=== PATIENT | female | born 1975 | race Caucasian/White ===

== ENCOUNTER 2020-02-29 17:50 | Emergency (ER) | payer OTHER ==
[~2020-02-29] VITALS: Ht 165.1 cm; Wt 142.4 kg
[~2020-02-29 17:50] MED LIST: BENADRYL; NKA
[2020-02-29 18:08] VITALS: BP 122/72
[2020-02-29] MEDS ORDERED: KETOROLAC 30 MG/ML VIAL IM ONE (18:35)
--- NOTE | 2020-02-29 18:40 | NUR ---
PT C/O RLQ ABDOMINAL PAIN RADIATING TO RUQ ABDOMEN AND RIGHT LOWER BACK AND NAUSEA FOR 2 HOURS. DENEIS VOMITING, DIARRHEA, FEVER, COUGH, OR SICK CONTACT. DENIES URGENCY, FREQUENCY, BURNING SENSATION OF URINATION. NO CVAT RANDI.
[2020-02-29 19:10] LABS: BASOPHILS # (AUTO) 0.1 K/uL (0.00-0.22); BASOPHILS % (AUTO) 0.6 % (0.0-2.0); EOSINOPHILS % (AUTO) 0.4 % (0.0-4.0); HEMATOCRIT 40.7 % (36-48); HEMOGLOBIN 13.7 g/dL (12.0-16.0); LYMPHOCYTES # (AUTO) 2.3 K/uL (2.5-16.5); LYMPHOCYTES % (AUTO) 22.5 % (20.5-51.1); MEAN CORPUSCULAR HEMOGLOBIN 32 pg (27-31); MEAN CORPUSCULAR HGB CONC 34 g/dL (33-37); MEAN CORPUSCULAR VOLUME 95.4 fL (80-94); MONOCYTES # (AUTO) 0.5 K/uL (0.8-1.0); MONOCYTES % (AUTO) 4.7 % (1.7-9.3); NEUTROPHILS # (AUTO) 7.2 K/uL (1.8-7.7); NEUTROPHILS % (AUTO) 71.8 % (42.2-75.2); PLATELET COUNT (AUTO) 303 K/uL (140-450); RED BLOOD CELL COUNT(AUTO) 4.27 MIL/uL (4.20-5.40); RED CELL DISTRIBUTION WIDTH 15.2 % (11.6-13.7)
[2020-02-29 19:11] LABS: APPEARANCE,URINE CLEAR (CLEAR); BILIRUBIN,URINE NEGATIVE (NEGATIVE); BLOOD, URINE NEGATIVE (NEGATIVE); COLOR,URINE YELLOW (YELLOW); LEUKOCYTE ESTERASE ,URINE NEGATIVE (NEGATIVE); NITRITE, URINE NEGATIVE (NEGATIVE); UGLUCOSE NEGATIVE (NEGATIVE)
[2020-02-29 19:24] LABS: ALBUMIN 3.7 g/dL (3.4-5.0); ANION GAP 14.2 (8-16); CARBON DIOXIDE 26.3 mmol/L (21-32); CREATININE 0.9 mg/dL (0.6-1.3); POTASSIUM 3.5 mmol/L (3.5-5.1); TOTAL BILIRUBIN 0.9 mg/dL (0.0-1.0)
[2020-02-29 21:14] VITALS: BP 122/72
--- NOTE | 2020-02-29 21:15 | NUR ---
Patient discharged with v/s stable. Written and verbal after care instructions given and explained. Patient alert, oriented and verbalized understanding of instructions. Ambulatory with steady gait. All questions addressed prior to discharge. ID band removed. Patient advised to follow up with PMD. Rx of FKAGYL, NAPROSYN AND FLAGYL given. Patient educated on indication of medication including possible reaction and side effects. Opportunity to ask questions provided and answered.
== END 2020-02-29 21:14 | disposition home or self-care (01) ==
LOC: MED 17:50
DX: R10.9 Unspecified abdominal pain (principal); Z79.899 Other long term (current) drug therapy; Z90.49 Acquired absence of other specified parts of digestive tract
CPT/HCPCS: 36415; 74176; 80053; 81003; 81025; 83690; 85025; 96372; 99284; J1885

== ENCOUNTER 2020-04-20 16:30 | Emergency (ER) | payer OTHER ==
[~2020-04-20] VITALS: Ht 157.5 cm; Wt 137.0 kg
[2020-04-20 16:36] VITALS: BP 136/92
--- NOTE | 2020-04-20 16:40 | NUR ---
11/08 R FLANK PAIN X1DAY AND INTERMITTENT MID ABDOMINAL PAIN X2 MONTHS. PT WAS DX WITH DIVERTICULOSIS IN 02/18, ABX PRESCRIBED AND PAIN NEVER SUBSIDED. DENIES DYSURIA. DENIES COVID SYMPTOMS. MED HX: DIVERTICULITIS RX: DENIES NKA
--- NOTE | 2020-04-20 18:01 | NUR ---
URINE TAKEN TO LAB
[2020-04-20 18:13] LABS: BILIRUBIN,URINE NEGATIVE (NEGATIVE); BLOOD, URINE NEGATIVE (NEGATIVE); COLOR,URINE YELLOW (YELLOW); LEUKOCYTE ESTERASE ,URINE TRACE (NEGATIVE); NITRITE, URINE NEGATIVE (NEGATIVE); PH,URINE 6.5 (5.0-9.0); UGLUCOSE NEGATIVE (NEGATIVE)
[2020-04-20 18:28] LABS: APPEARANCE,URINE HAZY (CLEAR)
[2020-04-20 19:08] LABS: RBC,URINE NONE SEEN /HPF (0-5); WBC,URINE 0-5 /HPF (0-5)
[2020-04-20] MEDS ORDERED: ACETAMINOPHEN 325 MG TAB PO ONE ×2 (19:10→19:20)
--- NOTE | 2020-04-20 19:10 | NUR ---
seen and examined by vannessa with orders and carried out.
[2020-04-20] MEDS ORDERED: KETOROLAC 15 MG/ML VIAL IVP ONE (19:15)
[2020-04-20 19:35] LABS: BASOPHILS # (AUTO) 0.1 K/uL (0.00-0.22); BASOPHILS % (AUTO) 0.8 % (0.0-2.0); EOSINOPHILS % (AUTO) 0.4 % (0.0-4.0); HEMATOCRIT 41.5 % (36-48); LYMPHOCYTES % (AUTO) 28.1 % (20.5-51.1); MEAN CORPUSCULAR HEMOGLOBIN 32 pg (27-31); MEAN CORPUSCULAR HGB CONC 34 g/dL (33-37); MEAN CORPUSCULAR VOLUME 93.8 fL (80-94); MONOCYTES # (AUTO) 0.5 K/uL (0.8-1.0); MONOCYTES % (AUTO) 4.8 % (1.7-9.3); NEUTROPHILS % (AUTO) 65.9 % (42.2-75.2); PLATELET COUNT (AUTO) 285 K/uL (140-450); RED BLOOD CELL COUNT(AUTO) 4.43 MIL/uL (4.20-5.40); WHITE BLOOD COUNT (AUTO) 10.6 K/uL (4.8-10.8)
[2020-04-20 20:12] LABS: ALBUMIN 3.7 g/dL (3.4-5.0); ANION GAP 10.3 (8-16); CARBON DIOXIDE 27.1 mmol/L (21-32); CREATININE 0.9 mg/dL (0.6-1.3); POTASSIUM 3.4 mmol/L (3.5-5.1); TOTAL BILIRUBIN 1.4 mg/dL (0.0-1.0)
[2020-04-20] MEDS ORDERED: KETOROLAC 15 MG/ML VIAL ONE (21:37)
[2020-04-20] MEDS ORDERED: metroNIDAZOLE 250 MG TAB PO ONE (21:45)
[2020-04-20] MEDS ORDERED: CIPROFLOXACIN 250 MG TAB PO ONE (21:45)
--- NOTE | 2020-04-20 21:45 | NUR ---
medicated as per ermds order, tolerated well.
--- NOTE | 2020-04-20 21:50 | NUR ---
all results back and noted by ermd and for d/c
[2020-04-20 22:15] VITALS: BP 119/89
--- NOTE | 2020-04-20 22:15 | NUR ---
Patient discharged with v/s stable. Written and verbal after care instructions given and explained. Patient alert, oriented and verbalized understanding of instructions. Ambulatory with steady gait. All questions addressed prior to discharge. ID band removed. Patient advised to follow up with PMD. Rx of CIPRO, NORCO, FLAGYL, ZOFRAN ODT given. Patient educated on indication of medication including possible reaction and side effects. Opportunity to ask questions provided and answered.
== END 2020-04-20 22:15 | disposition home or self-care (01) ==
LOC: MED 16:30
DX: K57.30 Diverticulosis of large intestine without perforation or abscess without bleeding (principal); Z79.899 Other long term (current) drug therapy
CPT/HCPCS: 36415; 74177; 80053; 81001; 81025; 83690; 85025; 96374; 99285; J1885; Q9967

== ENCOUNTER 2021-03-02 10:59 | Emergency (ER) | payer OTHER ==
[~2021-03-02] VITALS: Ht 157.5 cm; Wt 152.9 kg
[2021-03-02 11:07] VITALS: BP 171/115
--- NOTE | 2021-03-02 11:15 | NUR ---
PATIENT AMBULATED TO BED 11
--- NOTE | 2021-03-02 11:33 | NUR ---
45 Y/OFEMALE PATIENT PRESENTS TO ED WITH L ABD PAIN X2 DAYS. PT STATES SHE HAD A SIMILAR EVENT IN [place]IL WHEN SHE WAS DX W/ DIVERTICULITIS. PAIN IS NON RADIATING AND SHARP. DENIES N/V/D; SKIN IS PINK/WARM/DRY; AAOX4 WITH EVEN AND STEADY GAIT; LUNGS CLEAR BL; HR EVEN AND REGULAR; PT DENIES ANY FEVER, CP, SOB, OR COUGH AT THIS TIME; PATIENT STATES PAIN OF 7/10 AT THIS TIME; VSS; PATIENT POSITIONED FOR COMFORT; HOB ELEVATED; BEDRAILS UP X2; BED DOWN. ER MD MADE AWARE OF PT STATUS. HX: CHOLECYSTECTOMY, DIVERTICULITIS NKDA NO MEDS
[2021-03-02] MEDS ORDERED: NACL 0.9% 1,000 ML IV SCH (11:35)
--- NOTE | 2021-03-02 11:36 | NUR ---
ER AT BEDSIDE
[2021-03-02] MEDS ORDERED: ONDANSETRON 4 MG/2 ML VIAL IVP ONE (11:40)
[2021-03-02] MEDS ORDERED: AMOXIL/CLAVULANATE 875/125 MG 1 TAB PO ONE (11:40)
[2021-03-02] MEDS ORDERED: metroNIDAZOLE 250 MG TAB PO ONE (11:40)
[2021-03-02] MEDS ORDERED: KETOROLAC 30 MG/ML VIAL IVP ONE (11:40)
--- NOTE | 2021-03-02 12:00 | NUR ---
[employer] MACHINE OPERATOR AT PT BEDSIDE.
[2021-03-02 12:06] LABS: BASOPHILS # (AUTO) 0.1 K/uL (0.00-0.22); BASOPHILS % (AUTO) 0.8 % (0.0-2.0); EOSINOPHILS # (AUTO) 0.1 K/uL (0-0.4); EOSINOPHILS % (AUTO) 1.5 % (0.0-4.0); HEMATOCRIT 42.4 % (36-48); HEMOGLOBIN 14.4 g/dL (12.0-16.0); LYMPHOCYTES # (AUTO) 2.1 K/uL (2.5-16.5); LYMPHOCYTES % (AUTO) 26.3 % (20.5-51.1); MEAN CORPUSCULAR HEMOGLOBIN 33 pg (27-31); MEAN CORPUSCULAR HGB CONC 34 g/dL (33-37); MEAN CORPUSCULAR VOLUME 97.5 fL (80-94); MONOCYTES # (AUTO) 0.4 K/uL (0.8-1.0); MONOCYTES % (AUTO) 4.6 % (1.7-9.3); NEUTROPHILS # (AUTO) 5.4 K/uL (1.8-7.7); NEUTROPHILS % (AUTO) 66.8 % (42.2-75.2); PLATELET COUNT (AUTO) 298 K/uL (140-450); RED BLOOD CELL COUNT(AUTO) 4.35 MIL/uL (4.20-5.40); RED CELL DISTRIBUTION WIDTH 14.2 % (11.6-13.7); WHITE BLOOD COUNT (AUTO) 8.1 K/uL (4.8-10.8)
[2021-03-02 12:38] LABS: ALBUMIN 3.7 g/dL (3.4-5.0); ANION GAP 13.9 (8-16); CARBON DIOXIDE 25.7 mmol/L (21-32); CREATININE 0.8 mg/dL (0.6-1.3); POTASSIUM 3.6 mmol/L (3.5-5.1); TOTAL BILIRUBIN 1.5 mg/dL (0.0-1.0)
--- NOTE | 2021-03-02 12:56 | NUR ---
PT RESTING COMFORTABLY IN BED, RAILS UP X2, UNLABORED BREATHING WITH EQUAL CHEST RISE/FALL.
[2021-03-02] MEDS ORDERED: METR-435 PO (13:38)
[2021-03-02] MEDS ORDERED: AMOX-1000 PO (13:38)
[2021-03-02] MEDS ORDERED: ONDA-188 SL (13:38)
--- NOTE | 2021-03-02 13:42 | NUR ---
PT RESTING, VISIBLE EQUAL RISE AND FALL OF CHEST, VSS, WILL CONTINUE TO MONITOR.
[2021-03-02 13:50] VITALS: BP 135/73
--- NOTE | 2021-03-02 13:51 | NUR ---
Patient discharged with v/s stable. Written and verbal after care instructions given FOR ABD PAIN AND COLITIS and explained. Patient alert, oriented and verbalized understanding of instructions. Ambulatory with steady gait. All questions addressed prior to discharge. ID band removed. Patient advised to follow up with PMD. Rx of AUGMENTIN, FLAGYL, AND ZOFRAN given. Patient educated on indication of medication including possible reaction and side effects. Opportunity to ask questions provided and answered.
== END 2021-03-02 13:51 | disposition home or self-care (01) ==
LOC: MED 10:59
DX: K52.9 Noninfective gastroenteritis and colitis, unspecified (principal); Z79.899 Other long term (current) drug therapy
CPT/HCPCS: 80053; 81002; 81025; 83690; 85025; 96361; 96374; 96375; 99284; J1885; J2405; J7030

== ENCOUNTER 2021-06-13 15:26 | Emergency (ER) | payer OTHER ==
[~2021-06-13] VITALS: Ht 157.5 cm; Wt 153.1 kg
[~2021-06-13 15:26] MED LIST changes: +AMOX-1000 PO; +METR-435 PO; +ONDA-188 SL
[2021-06-13 15:37] VITALS: BP 165/100
--- NOTE | 2021-06-13 16:16 | NUR ---
PATIENT PRESENTS TO ED WITH RUQ PAINF 6/10 THAT RADIATED TO BACK AND UP TO LEFT SHOULDER. PT STATES AT TIMES WHEN SHE TAKES A BIG BREATH SHE GETS A SHARP PAIN. DENIES N/V/D; SKIN IS PINK/WARM/DRY; AAOX4 WITH EVEN AND STEADY GAIT; VSS; PATIENT PLACED IN GOWN AND POSITIONED FOR COMFORT; HOB ELEVATED; BEDRAILS UP X2; BED DOWN. ER MD MADE AWARE OF PT STATUS. NKDA MED HX: DIVERTICULITIS MEDS:FIBER
--- NOTE | 2021-06-13 17:13 | NUR ---
20G IV INSERTED TO LEFT AC, LABS DRAWN BEDSIDE AND HANDED TO LASTING ROOM SUPERVISOR.
[2021-06-13] MEDS: KETOROLAC 15 MG/ML VIAL IVP ONE (17:14)
[2021-06-13 17:26] LABS: BASOPHILS # (AUTO) 0.1 K/uL (0.00-0.22); BASOPHILS % (AUTO) 0.7 % (0.0-2.0); EOSINOPHILS # (AUTO) 0.1 K/uL (0-0.4); EOSINOPHILS % (AUTO) 1.1 % (0.0-4.0); HEMATOCRIT 42.9 % (36-48); HEMOGLOBIN 14.6 g/dL (12.0-16.0); LYMPHOCYTES % (AUTO) 19.4 % (20.5-51.1); MEAN CORPUSCULAR HEMOGLOBIN 34 pg (27-31); MEAN CORPUSCULAR HGB CONC 34 g/dL (33-37); MEAN CORPUSCULAR VOLUME 98.2 fL (80-94); MONOCYTES # (AUTO) 0.4 K/uL (0.8-1.0); NEUTROPHILS # (AUTO) 7.8 K/uL (1.8-7.7); NEUTROPHILS % (AUTO) 74.8 % (42.2-75.2); PLATELET COUNT (AUTO) 299 K/uL (140-450); RED BLOOD CELL COUNT(AUTO) 4.36 MIL/uL (4.20-5.40); RED CELL DISTRIBUTION WIDTH 14.7 % (11.6-13.7); WHITE BLOOD COUNT (AUTO) 10.5 K/uL (4.8-10.8)
[2021-06-13] MEDS: KETOROLAC 15 MG/ML VIAL IM ONE (17:41)
--- NOTE | 2021-06-13 19:31 | NUR ---
Pt report given to LINN GILLESPIE. Transfer of care at this time.
[2021-06-13 19:36] LABS: ALBUMIN 3.5 g/dL (3.4-5.0); ANION GAP 15.9 (8-16); CARBON DIOXIDE 23.5 mmol/L (21-32); CREATININE 0.8 mg/dL (0.6-1.3); POTASSIUM 3.4 mmol/L (3.5-5.1); TOTAL BILIRUBIN 1.9 mg/dL (0.0-1.0)
--- NOTE | 2021-06-13 20:35 | NUR ---
PATIENT CLEARED FOR DISCHARGE AT THIS TIME. ADVISED TO FOLLOW UP WITH PCP AND RETURN IF CONDITION WORSENS. NO OTHER COMPAINTS OR COENCRNS AT THIS TIME FOLLOWING CARRIE AMOS,.
[2021-06-13 20:36] VITALS: BP 121/79
== END 2021-06-13 20:35 | disposition home or self-care (01) ==
LOC: MED 15:26
DX: K57.30 Diverticulosis of large intestine without perforation or abscess without bleeding (principal)
CPT/HCPCS: 36415; 74176; 80053; 81025; 83690; 85025; 96372; 96374; 99285; J1885

== ENCOUNTER 2021-09-28 10:38 | Emergency (ER) | payer OTHER ==
[~2021-09-28] VITALS: Ht 157.5 cm; Wt 158.5 kg
[2021-09-28 10:47] VITALS: BP 170/100
--- NOTE | 2021-09-28 10:54 | NUR ---
PT AMBULATED TO ER BED 3
--- NOTE | 2021-09-28 11:15 | NUR ---
45 Y/O FEMALE C/O EPIGASTRIC PAIN X1 WEEK AND GENERALIZED LOWER ABD PAIN X2 DAYS. PT DENIES N/V/DYSURIA. PT DENIES TAKING ANYTHING FOR PAIN. PT RATTES PAIN 7/10 THATSHE DESCRIBES "PULLING/CRAMPING LIKE". PT REPORTS PAIN IS WORSE WITH MOVEMENT. ABD IS ROUND, SOFT AND NONTENDER ON PALAPTION. SCAR TO R SIDE OF ABD FROM GALLBLADDER REMOVAL. PT ALSO REPORTS BRIGHT RED BLOOD WHEN WIPING, REPORTS HX OF HEMMORROIDS. DENIES BLACK COLORED STOOL. PT A/O X4 WITH EVEN AND UNLABORED RESPIRATIONS. PMH: DIVERTICULITIS NKA
--- NOTE | 2021-09-28 12:06 | NUR ---
DR FLORES AT BEDSIDE EVALUATING PT
[2021-09-28] MEDS ORDERED: KETOROLAC 60 MG/2 ML VIAL IM ONE (12:10)
[2021-09-28] MEDS ORDERED: IBUP-2213 PO (13:01)
[2021-09-28] MEDS ORDERED: OMEP40EC24 PO (13:01)
[2021-09-28] MEDS ORDERED: HYDR-2734 TP (13:01)
--- NOTE | 2021-09-28 13:38 | NUR ---
Patient discharged with v/s stable. Written and verbal after care instructions ABOUT ABDOMINAL PAIN given and explained. Patient alert, oriented and verbalized understanding of instructions. Ambulatory with steady gait. All questions addressed prior to discharge. ID band removed. Patient advised to follow up with PMD. Rx of HYDROCORTISONE, IBUPROFEN, AND OMEPRAZOLE given. Patient educated on indication of medication including possible reaction and side effects. Opportunity to ask questions provided and answered.
== END 2021-09-28 13:38 | disposition home or self-care (01) ==
LOC: MED 10:38
DX: R10.13 Epigastric pain (principal); Z90.49 Acquired absence of other specified parts of digestive tract; Z79.899 Other long term (current) drug therapy
CPT/HCPCS: 81002; 81025; 96372; 99283; J1885